=== PATIENT | female | born 1950 | race Caucasian/White ===

== ENCOUNTER 2019-09-07 13:28 | Emergency (ER) | payer MEDICARE, OTHER ==
[~2019-09-07] VITALS: Ht 162.6 cm; Wt 90.7 kg
[2019-09-07 14:28] LABS: BASOPHILS ABSOLUTE AUTO 0.06 K/mm3 (0.00-0.23); BASOPHILS PERCENT AUTO 0 % (0-2); EOSINOPHILS ABSOLUTE AUTO 0.26 K/mm3 (0.00-0.68); EOSINOPHILS PERCENT AUTO 2 % (0-6); Hematocrit 48.4 % (33.0-51.0); Hemoglobin 15.8 g/dL (11.5-16.0); IMMATURE GRAN ABSOLUTE AUTO 0.05 K/mm3 (0.00-0.10); IMMATURE GRAN PERCENT AUTO 0 % (0-1); LYMPHOCYTES ABSOLUTE AUTO 3.83 K/mm3 (0.84-5.20); LYMPHOCYTES PERCENT AUTO 28 % (21-46); MONOCYTES ABSOLUTE AUTO 0.75 K/mm3 (0.16-1.47); MONOCYTES PERCENT AUTO 6 % (4-13); Mean Corpuscular HGB 28.8 pg (26.0-34.0); Mean Corpuscular HGB Conc 32.6 g/dL (31.5-36.5); Mean Corpuscular Volume 88 fL (80-100); Mean Platelet Volume 9.3 fL (9.1-12.4); NEUTROPHILS ABSOLUTE AUTO 8.74 K/mm3 (1.96-9.15); NEUTROPHILS PERCENT AUTO 64 % (41-73); Platelet Count 385 K/mm3 (150-400); RDW Coefficient Variation 13.2 % (11.7-14.2); RDW Standard Deviation 42.6 fL (35.1-46.3); Red Blood Cell Count 5.48 M/mm3 (3.80-5.20); White Blood Cell Count 13.69 K/mm3 (4.00-11.30)
[2019-09-07 14:46] LABS: Troponin I <0.015 ng/mL (0.000-0.040)
[2019-09-07 14:50] LABS: Alanine Aminotransfer (ALT/SGP 44 U/L (12-78); Albumin, Blood 3.8 g/dL (3.4-5.0); Albumin/Globulin Ratio 0.8 (0.8-1.8); Alk Phos 117 U/L (50-136); Anion Gap 9 mmol/L (6-16); Aspartate Aminotrans (AST/SGOT 22 U/L (12-37); Bilirubin, Total 0.6 mg/dL (0.1-1.0); Blood Urea Nitrogen 16 mg/dL (8-24); CO2, Blood 25 mmol/L (21-32); Calcium, Blood 9.9 mg/dL (8.5-10.1); Chloride, Blood 105 mmol/L (98-108); Creatinine, Blood 0.94 mg/dL (0.40-1.00); Globulin, Blood 4.6 g/dL (2.2-4.0); Glomerular Filtration Rate >60 (60-); Glucose, Blood 137 mg/dL (70-99); Potassium, Blood 3.6 mmol/L (3.5-5.5); Sodium, Blood 139 mmol/L (136-145); Total Protein, Blood 8.4 g/dL (6.4-8.2)
[2019-09-07] MEDS ORDERED: GUAIFEN-CODEINE10 ML PO (17:08)
[2019-09-07] MEDS ORDERED: Ventolin/Prove6.7 GM INH (17:08)
[2019-09-07] MEDS ORDERED: Monodox100 MG PO (17:08)
== END 2019-09-07 17:38 | disposition other institution (70) ==
LOC: ER 13:28
PROVIDERS: Physician Assistant
DX: J18.9 Pneumonia, unspecified organism (principal); I10 Essential (primary) hypertension; Z88.1 Allergy status to other antibiotic agents
CPT/HCPCS: 36415; 71046; 71260; 80053; 84484; 85025; 93005; 93010; 99285-25; Q9967

== ENCOUNTER 2023-12-08 17:43 | Inpatient (IN) | payer OTHER ==
[~2023-12-08] VITALS: Ht 157.5 cm; Wt 85.2 kg
[~2023-12-08 17:43] MED LIST: GUAIFEN-CODEINE10 ML PO; Monodox100 MG PO; Ventolin/Prove6.7 GM INH
[2023-12-08 18:07] LABS: BASOPHILS ABSOLUTE AUTO 0.07 K/mm3 (0.00-0.23); BASOPHILS PERCENT AUTO 1 % (0-2); EOSINOPHILS ABSOLUTE AUTO 0.42 K/mm3 (0.00-0.68); EOSINOPHILS PERCENT AUTO 3 % (0-6); Hemoglobin 16.2 g/dL (11.5-16.0); IMMATURE GRAN ABSOLUTE AUTO 0.03 K/mm3 (0.00-0.10); IMMATURE GRAN PERCENT AUTO 0 % (0-1); LYMPHOCYTES PERCENT AUTO 27 % (21-46); MONOCYTES PERCENT AUTO 9 % (4-13); Mean Corpuscular HGB 28.1 pg (26.0-34.0); Mean Corpuscular HGB Conc 33.1 g/dL (31.5-36.5); Mean Corpuscular Volume 85 fL (80-100); Mean Platelet Volume 9.2 fL (9.1-12.4); NEUTROPHILS ABSOLUTE AUTO 7.27 K/mm3 (1.96-9.15); NEUTROPHILS PERCENT AUTO 60 % (41-73); Platelet Count 387 K/mm3 (150-400); RDW Coefficient Variation 13.2 % (11.7-14.2); RDW Standard Deviation 41.2 fL (35.1-46.3); Red Blood Cell Count 5.77 M/mm3 (3.80-5.20); White Blood Cell Count 12.19 K/mm3 (4.00-11.30)
[2023-12-08 18:27] LABS: Albumin, Blood 3.7 g/dL (3.4-5.0); Albumin/Globulin Ratio 0.8 (0.8-1.8); Bilirubin, Total 0.4 mg/dL (0.1-1.0); Bun/Creatinine Ratio 20.5 (12.0-20.0); Calcium, Blood 9.5 mg/dL (8.5-10.1); Creatinine, Blood 0.83 mg/dL (0.40-1.00); Globulin, Blood 4.4 g/dL (2.2-4.0); Potassium, Blood 3.6 mmol/L (3.5-5.5); Total Protein, Blood 8.1 g/dL (6.4-8.2)
[2023-12-08 21:24] LABS: Anti-Xa UFH, PHA Monitoring <0.10 IU/mL; International Normalized Ratio 1.01; Prothrombin Time Results 10.6 Sec (9.7-11.5)
[2023-12-09] VITALS (24 sets, daily range): BP systolic 104–172; BP diastolic 70–94
[2023-12-09 05:28] LABS: BASOPHILS ABSOLUTE AUTO 0.07 K/mm3 (0.00-0.23); BASOPHILS PERCENT AUTO 1 % (0-2); EOSINOPHILS ABSOLUTE AUTO 0.48 K/mm3 (0.00-0.68); EOSINOPHILS PERCENT AUTO 5 % (0-6); Hematocrit 42.6 % (33.0-51.0); Hemoglobin 13.9 g/dL (11.5-16.0); IMMATURE GRAN ABSOLUTE AUTO 0.02 K/mm3 (0.00-0.10); IMMATURE GRAN PERCENT AUTO 0 % (0-1); LYMPHOCYTES PERCENT AUTO 30 % (21-46); MONOCYTES ABSOLUTE AUTO 0.81 K/mm3 (0.16-1.47); MONOCYTES PERCENT AUTO 9 % (4-13); Mean Corpuscular HGB 28.3 pg (26.0-34.0); Mean Corpuscular HGB Conc 32.6 g/dL (31.5-36.5); Mean Corpuscular Volume 87 fL (80-100); Mean Platelet Volume 9.2 fL (9.1-12.4); NEUTROPHILS ABSOLUTE AUTO 4.84 K/mm3 (1.96-9.15); NEUTROPHILS PERCENT AUTO 54 % (41-73); Platelet Count 318 K/mm3 (150-400); RDW Coefficient Variation 13.4 % (11.7-14.2); RDW Standard Deviation 42.6 fL (35.1-46.3); Red Blood Cell Count 4.92 M/mm3 (3.80-5.20); White Blood Cell Count 8.92 K/mm3 (4.00-11.30)
[2023-12-09 06:05] LABS: Albumin, Blood 3.1 g/dL (3.4-5.0); Albumin/Globulin Ratio 0.8 (0.8-1.8); Bilirubin, Total 0.5 mg/dL (0.1-1.0); Bun/Creatinine Ratio 19.9 (12.0-20.0); Calcium, Blood 9.4 mg/dL (8.5-10.1); Creatinine, Blood 0.9 mg/dL (0.40-1.00); Globulin, Blood 3.8 g/dL (2.2-4.0); Potassium, Blood 3.7 mmol/L (3.5-5.5); Total Protein, Blood 6.9 g/dL (6.4-8.2)
--- NOTE | 2023-12-09 10:50 | NUR ---
ICU ADMISSION / DR FERNANDEZ: REPORT RECEIVED FROM SHILPI Toledo RN IN ED. PT ARRIVED TO ICU-14 AT APPROX 1025. ON ARRIVAL, THE PT IS A&O TO ALL, ABLE TO STAND & TX SELF FROM GURNEY TO BED. LS CLEAR T/O, PT ON RA W/ O2 SATS > 95%. MONITOR SHOWS SR W/ HR 80s, HTN INCREASING. NPO R/T POSS ANGIOGRAM, PT STS HAVING POOR APPETITE "LATELY" W/ LITTLE PO INTAKE AT HOME PRIOR TO ADMIT. VOIDS URINE W/O DIFFICULTY AT BASELINE. SKIN CONDITION OVERALL INTACT, PT ABLE TO REPOSITION SELF PRN FOR COMFORT. DR FERNANDEZ AT BEDSIDE FOR CARDIO CONSULT. PROVIDER HAS CONSENTED THE PT FOR ANGIOGRAM & WILL BE CONTACTING HEART CENTER STAFF TO WORK HER INTO THE SCHEDULE. HE HAS PROVIDED THE PT's W/ AN UPDATE WELL. ORDERS PLACED FOR LOSARTAN & COREG PER EMAR, PRN DOSE HYDRALAZINE TO BE GIVEN FOR SBP > 170. WILL CONTINUE TO MONITOR & UPDATE NEEDED.
--- NOTE | 2023-12-09 12:25 | NUR ---
CERTIFIED NUCLEAR MEDICINE TECHNOLOGIST: PT TAKEN VIA BED TO CERTIFIED NUCLEAR MEDICINE TECHNOLOGIST AT APPROX 1225. PT's HAS AT BEDSIDE DURING THIS TIME & PLANS TO WAIT IN [facility]ART CENTER LOBBY FOR UPDATES.
--- NOTE | 2023-12-09 14:51 | NUR ---
RETURN FROM CARBURIZING FURNACE OPERATOR: PT BACK TO ROOM ICU-14 FROM CARBURIZING FURNACE OPERATOR AT APPROX 1405. [address] TO RIGHT RADIAL TR BAND. SURROUNDING TISSUE IS SOFT, SLIGHTLY TENDER TO PALPATION. SPO2 PROBE IN PLACE W/ STRONG PLETH NOTED, CAP REFILL < 3 SECONDS. PT STS CONTINUED NAUSEA & CHEST PAIN. CLARIFIED W/ CARBURIZING FURNACE OPERATOR LORI MERCADO THAT CHEST PAIN WAS PERSISTANT THROUGH PROCEDURE. DR LOVE CONTACTED REGARDING PERSISTANT C/O NAUSEA, PRN REGLAN ORDERED & GIVEN PER EMAR. PT NOW RESTING QUIETLY W/ AT BEDSIDE.
[2023-12-09] MEDS ORDERED: VITAMIN D5000 UNIT PO (15:10)
[2023-12-09] MEDS ORDERED: Vitamin K100 MCG PO (15:10)
--- NOTE | 2023-12-09 15:12 | NUR ---
UPDATE: CALL TO PROVIDER REGARDING PT's CONSISTENT C/O CHEST PAIN S/P INTERVENTIONAL ANGIOGRAM. EKG ORDERS PLACED.
--- NOTE | 2023-12-09 17:49 | NUR ---
SHIFT SUMMARY: NO ACUTE CHANGES SINCE PRIOR UPDATES. AFTER RECEIVING REGLAN, THE PT's NAUSEA HAS SUBSIDED & SHE HAS BEEN ABLE TO REST FOR APPROX 2 HRS. SHE HAS SINCE TOLERATED PO INTAKE OF ICE WATER & VANILLA PUDDING W/ NO FURTHER NAUSEA. SHE CURRENTLY DENIES CHEST PAIN OR PRESSURE, STS HAVING LINGERING HEADACHE & WOULD LIKE TO REST MORE. PT's HAS LEFT FOR THE EVENING & SHE IS AGAIN RESTING QUIETLY. LS CLEAR T/O, PT ON 2L NC W/ O2 SATS > 95%. PLACED ON O2 DURING PRIOR MENTIONED EPISODE OF CP & NAUSEA. MONITOR SHOWS SR W/ HR 80s, BP STABLE, CONTINUES TO IMPROVE. DR REBECCA BEAR'd PT FOR PO INTAKE, HEART HEALTHY DIET ORDERED. PT HAS NOT VOIDED URINE SINCE RETURN FROM CANE FEEDER, DENIES SENSATION OF NEEDING TO URINATE AT THIS TIME, HAS HAD VERY LITTLE PO INTAKE. SKIN OVERALL INTACT, PT ABLE TO REPOSITION SELF PRN FOR COMFORT & TO MAINTAIN SKIN INTEGRITY. TR BAND IN PLACE TO RIGHT RADIAL PUNCTURE SITE, FULLY DEFLATED AT 1745, WILL REMOVE & PLACE CLEAR OCCLUSIVE DRESSING IN APPROX 1 HR. WRIST IMMOBILIZER REMAINS IN PLACE TO PREVENT FLEXION OF SITE. WILL CONTINUE TO MONITOR & REPORT OFF TO ONCOMING RN.
--- NOTE | 2023-12-09 19:00 | NUR ---
ASSUMPTION OF CARE PT IS ALERT AND ORIENTED X4. BEDSIDE SHIFT REPORT W/ALESHA RN. PT TR BAND REMOVED BY ALESHA SANDOVAL AND TEGADERM DRESSING PLACED. NO BLEEDING /HEMATOMA NOTED, MILD SORENESS AT SITE. IMMOBILIZER LEFT IN PLACE TO MINIMIZE MOVEMENT. PT STATES SHE WOULD LIKE TO REST, WARM BLANKETS PROVIDED. PT IS AFEBRILE AT THIS TIME. NO COMPLAINTS OF CHEST PAIN OR PRESSURE, NO N/V. SHE IS SR ON THE LENDING ADVISOR W/BP WNL. OXYGEN SAT 98% ON 2L NC. INSTRUCTED PT TO CALL W/ANY NEEDS. PT VERBALIZED UNDERSTANDING.
[2023-12-10] VITALS (16 sets, daily range): BP systolic 95–142; BP diastolic 59–79
[2023-12-10 03:41] LABS: Bun/Creatinine Ratio 20.8 (12.0-20.0); Calcium, Blood 8.5 mg/dL (8.5-10.1); Creatinine, Blood 1.06 mg/dL (0.40-1.00); Potassium, Blood 3.9 mmol/L (3.5-5.5)
--- NOTE | 2023-12-10 06:00 | NUR ---
SHIFT SUMMERY PT IS ALERT AND ORIENTED X 4, ALTHOUGH SHE IS SLIGHTLY DISORIENTED FOR A MOMENT WHEN SHE FIRST AWAKENS. SHE HAS BEEN UP TO THE BEDSIDE COMMODE. SHE HAS HAD NO COMPLAINTS OF CHEST PAIN/DISCOMFORT AND NO N/V THIS SHIFT. SHE DID HAVE A HEADACHE THAT WAS TREATED W/TYLENOL-SEE EMAR. SHE HAS RESTED WELL OVERNIGHT W/NO ACUTE DISTRESS. SHE IS ON 2L NC W/OXYGEN SAT 98%. BP HAS BEEN WNL AND PT HAS BEEN AFEBRILE. RIGHT RADIAL SITE IS C/D/I W/TRANSPARENT DRESSING IN PLACE. NO BRUISING/HEMATOMA W/STRONG PULSE AND PROPER CIRCULATION PRESENT.
--- NOTE | 2023-12-10 07:40 | NUR ---
INITIAL ASSESSMENT PATIENT ALERT AND ORIENTED X 4, AFEBRILE. PATIENT DENIES PAIN, INCLUDING CHEST PAIN OR PRESSURE. PATIENT AFEBRILE. PATIENT WEAK. R WRIST RESTRICTIONS BECAUSE OF R RADIAL DIRECTOR CLINICAL PHARMACOLOGY ACCESS SITE. NO BLEEDING OR HEMATOMA NOTED TO R RADIAL; SMALL BRUISE NOTED. PATIENT TAKEN OFF OF 2 L NC TO RA AND CONTINUES TO SATURATE 90% AND GREATER. LUNGS CLEAR TO AUSCULTATION. PATIENT IN SR, HR IN THE 70S. SBP IN THE 1-TEENS. GI AND WNL. BED LOW, CALL LIGHT IN REACH. CARE CONTINUES.
--- NOTE | 2023-12-10 10:26 | NUR ---
Pt. is awake in bed and welcomes my visit. Pt. is pleasant. Facilitated a life review and considedred matters of papito and belief. Pt. verbalized that she is new to the area. Pt. displays evidence of awareness and enaggement and verbalizes that she expects to be discharged home later today. Prayed with Pt. Pt. verbalized gratitude for the spiritual care visit.
[2023-12-10] MEDS ORDERED: ATOR80 PO (11:55)
[2023-12-10] MEDS ORDERED: ASPI81CH PO (11:56)
[2023-12-10] MEDS ORDERED: CLOP75 PO (11:56)
[2023-12-10] MEDS ORDERED: CARVEDILOL12.5 MG PO (11:56)
[2023-12-10] MEDS ORDERED: LOSA50 PO (11:57)
--- NOTE | 2023-12-10 13:30 | NUR ---
SHIFT SUMMARY/ DISCHARGE PATIENT REMAINED ALERT AND ORIENTED X 4, AFEBRILE. PATIENT WEAK BUT WAS ABLE TO AMBULATE OUT IN ICU. PATIENT STATED SHE FELT COMFORTABLE GOING HOME AND THAT HER CAN HELP HER HE IS RETIRED AND "ALWAYS HOME". PATIENT REMAINED SATTING 90% AND GREATER ON RA. PATIENT REMAINED IN SR, HR 60S TO 70S. SBP 90S TO 120S. NO BM THIS SHIFT. PATIENT HAD OKAY APPETITE. WNL. R RADIAL SITE REMAINED WNL; NO BLEEDING OR HEMATOMA. SMALL BRUISE NOTED. PATIENT HAD COMPLETE BED BATH THIS SHIFT. RADIAL ACCESS SITE CARE INSTRUCTIONS EXPLAINED TO AND PRINTED OUT TO TAKE HOME. PATIENT EDUCATED ON NEW MEDICATIONS. PATIENT STATED SHE UNDERSTOOD ALL DISCHARGE INFORMATION AND INSTRUCTIONS. PATIENT WHEELED OUT TO 'S CARE. DISCHARGE COMPLETE.
== END 2023-12-10 13:30 | disposition home or self-care (01) | DRG 321 ==
LOC: ER 17:43 → ERHOLD 17:44 → PCU 17:44 → ICUE 12-09 10:30
PROVIDERS: Emergency Medicine; Internal Medicine; Student in an Organized Health Care Education/Training Program; ADMIT Internal Medicine
PROC: 027034Z Dilation of Coronary Artery, One Artery with Drug-eluting Intraluminal Device, Percutaneous Approach (ICD-10-PCS; principal; 2023-12-09)
PROC: B2111ZZ Fluoroscopy of Multiple Coronary Arteries using Low Osmolar Contrast (ICD-10-PCS; 2023-12-09)
DX: I21.4 Non-ST elevation (NSTEMI) myocardial infarction (principal); J18.9 Pneumonia, unspecified organism; I16.1 Hypertensive emergency; E78.00 Pure hypercholesterolemia, unspecified; I10 Essential (primary) hypertension; Z91.148 Patient's other noncompliance with medication regimen for other reason; Z28.21 Immunization not carried out because of patient refusal
CPT/HCPCS: 36415; 70450; 71046; 76937; 80048; 80053; 82947; 84484; 85025; 85347; 85520; 85610; 85730; 93454; 94760; 96365; 96366; 96375; 96376; 99152; 99153; 99285-25; A9270; C1725; C1769; C1874; C1887; C1894; C8929; C9113; C9600; G0378; J0360; J1644; J2060; J2250; J2405; J2765; J3010; J3246; J7030; J7050; Q9957; Q9967